=== PATIENT | female | born 1990 | race Hispanic/Latino ===

== ENCOUNTER 2019-03-23 15:43 | Emergency (ER) | payer OTHER, SELFPAY ==
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
[2019-03-23 18:49] VITALS: BP 118/78; TEMP 98; O2SAT 99
== END 2019-03-23 17:27 | disposition home or self-care (01) ==
LOC: ER 15:43
DX: S60.511A Abrasion of right hand, initial encounter (principal); R10.31 Right lower quadrant pain; V47.5XXA Car driver injured in collision with fixed or stationary object in traffic accident, initial encounter
CPT/HCPCS: 70450; 71250; 72125; 99284

== ENCOUNTER 2023-07-25 10:53 | Emergency (ER) | payer SELFPAY ==
[2023-07-25] MEDS ORDERED: SMZ./TMP. 800/160 MG TABLET ONE (12:15)
[2023-07-25] MEDS ORDERED: DOXYCYCLINE 100 MG CAP PO ONE (12:15)
[2023-07-25] MEDS ORDERED: LIDOCAINE 2% W/EPI 1:200,000 MPF 20 ML VIAL IM ONE (12:15)
[2023-07-25 13:20] LABS: Specific Gravity 1.013 (1.005-1.030)
[2023-07-25 13:43] LABS: Specific Gravity 1.013 (1.005-1.030); Urine Bacteria <20 /HPF (<20); Urine Bilirubin NEGATIVE (Negative); Urine Blood Negative (Negative); Urine Clarity Extremely Turbid (Clear); Urine Color Light-Yellow (Yellow); Urine Culture Reflex Order NOT NEEDED; Urine Glucose NEGATIVE (Negative); Urine Ketones NEGATIVE (Negative); Urine Microscopic Reflex YN ORDER UMIC; Urine Mucus Slight /HPF (None Seen); Urine Nitrite NEGATIVE (Negative); Urine Protein NEGATIVE (Negative); Urine RBC <5 /HPF (None Seen); Urine Urobilinogen Normal (Normal); Urine WBC <5 /HPF (<5)
--- NOTE | 2023-07-25 14:00 | ER ---
Nurse's Notes [facility] Name: Lisseth Cardenas Age: 33 yrs Sex: Female : 1990 Arrival Date: 07/25/2023 Time: 10:53 Bed 18 Private MD: Diagnosis: Sebaceous cyst-infected;Cutaneous abscess of trunk Presentation: 07/24 11:08 Chief complaint: Patient states: "I've had this abscess under my right breast for the mb9 past week. I danny to urgent care on Saturday and got put on Bactrim but it's not helping. ". Coronavirus screen: At this time, the client does not indicate any symptoms associated with coronavirus-19. Ebola Screen: No symptoms or risks identified at this time. Initial Sepsis Screen: Does the patient meet any 2 criteria? No. Patient's initial sepsis screen is negative. Does the patient have a suspected source of infection? No. Patient's initial sepsis screen is negative. Risk Assessment: Do you want to hurt yourself or someone else? Patient reports no desire to harm self or others. Onset of symptoms was July 25, 2023. 11:08 Acuity: RADHA 3 mb9 11:08 Method Of Arrival: Ambulatory mb9 Triage Assessment: 11:10 General: Appears in no apparent distress. uncomfortable, obese, Behavior is calm, bp cooperative, appropriate for age. Pain: Complains of pain in abdomen. Derm: Abscess located on abdomen is golf ball sized. Historical: - Allergies: 11:07 No Known Allergies; mb9 - Home Meds: 11:07 Bactrim [Active]; mb9 - PMHx: 11:07 None; mb9 - PSHx: 11:07 None; mb9 - Immunization history:: Adult Immunizations up to date. - Infectious Disease History:: Denies. - Social history:: Smoking status: Patient denies any tobacco usage or history of. - Family history:: not pertinent. Screenin:15 [facility] ED Fall Risk Assessment (Adult) History of falling in the last 3 months, bp including since admission No falls in past 3 months (0 pts). Abuse screen: Denies threats or abuse. Denies injuries from another. Nutritional screening: No deficits noted. Tuberculosis screening: No symptoms or risk factors identified. Assessment: 11:10 General: SEE TRIAGE NOTE. bp 13:01 Reassessment: AT B/S FOR I\\T\\D. bp Vital Signs: 11:08 BP 130 / 68; Pulse 75; Resp 18; Temp 97.9; Pulse Ox 100% ; Weight 90.72 kg; Height 5 mb9 ft. 2 in. ; Pain 7/10; 13:00 BP 127 / 99; Pulse 82; Resp 16; Pulse Ox 100% ; bp 14:29 BP 121 / 81; Pulse 67; Resp 16; Pulse Ox 100% ; bp 11:08 Body Mass Index 36.58 (90.72 kg, 157.48 cm) mb9 11:08 Pain Scale: Adult mb9 ED Course: 10:58 Patient arrived in ED. ra3 11:02 Efra Costa MD is Attending Physician. marina 11:07 Arm band placed on. mb9 11:09 Triage completed. mb9 11:15 Patient has correct armband on for positive identification. bp 12:17 Cipriano Acosta, RN is Primary Nurse. bp 13:01 Assist provider with I \\T\\ D: of an abscess on ABDOMEN Set up I\\T\\D tray. Performed by bp Efra Costa MD Culture sent to lab. 13:59 Yaya Alamo MD is Referral Physician. marina 14:30 Patient did not have IV access during this emergency room visit. bp 14:31 Provided Education on: n/a. bp Administered Medications: 12:22 Drug: Doxycycline PO 200 mg PO once Route: PO; bp 13:59 Follow up: Response: No adverse reaction bp 12:22 Drug: Trimethoprim-Sulfamethoxazole PO (160 mg-800 mg (DS) 1 tablet PO once Route: PO; bp 13:59 Follow up: Response: No adverse reaction bp 13:59 Drug: Mupirocin Topical Ointment 2 % 1 application Topical once Route: Topical; Site: bp affected area; Outcome: 14:00 Discharge ordered by . marina 14:30 Discharged to home ambulatory, bp 14:30 Condition: stable 14:30 Discharge instructions given to patient, Instructed on discharge instructions, follow up and referral plans. medication usage, Demonstrated understanding of instructions, follow-up care, medications, wound care, Prescriptions given X 4, 14:31 Patient left the ED. bp Signatures: Efra Costa MD MD cha Peltier, Brian, RN RN Cynthia Sanfordh, RN RN mb9 Pao, Leidy ra3
--- NOTE | 2023-07-25 14:00 | EDPHYS ---
Physician Documentation [facility] Name: Lisseth Cardenas Age: 33 yrs Sex: Female : 1990 Arrival Date: 07/25/2023 Time: 10:53 Bed 18 Private MD: Efra King HPI: 07/24 13:52 This 33 yrs old Female presents to ER via Ambulatory with complaints of marina Abscess - under breast. 13:52 The patient presents with an abscess of the chest, The patient presents with cellulitis marina of the diaphragm. Description: The affected area is small, moderate sized, localized, erythematous, fluctuant. Onset: The symptoms/episode began/occurred 10 day(s) ago. Possible cause(s): unknown. Associated signs and symptoms: The patient has no apparent associated signs or symptoms. Modifying factors: the symptoms are alleviated by nothing, the symptoms are aggravated by movement, squeezing the lesion and expressing the contents, touching. Severity of symptoms: At their worst the symptoms were moderate, in the emergency department the symptoms are unchanged. The patient has experienced similar episodes in the past, a few times. Historical: - Allergies: 11:07 No Known Allergies; mb9 - Home Meds: 11:07 Bactrim [Active]; mb9 - PMHx: 11:07 None; mb9 - PSHx: 11:07 None; mb9 - Immunization history:: Adult Immunizations up to date. - Infectious Disease History:: Denies. - Social history:: Smoking status: Patient denies any tobacco usage or history of. - Family history:: not pertinent. ROS: 13:52 Constitutional: Negative for fever, chills, and weight loss, Eyes: Negative for injury, marina pain, redness, and discharge, ENT: Negative for injury, pain, and discharge, Neck: Negative for injury, pain, and swelling, Cardiovascular: Negative for chest pain, palpitations, and edema, Respiratory: Negative for shortness of breath, cough, wheezing, and pleuritic chest pain, Abdomen/GI: Negative for abdominal pain, nausea, vomiting, diarrhea, and constipation, Back: Negative for injury and pain, : Negative for injury, bleeding, discharge, and swelling, MS/Extremity: Negative for injury and deformity, Neuro: Negative for headache, weakness, numbness, tingling, and seizure, Psych: Negative for depression, anxiety, suicide ideation, homicidal ideation, and hallucinations, Allergy/Immunology: Negative for hives, rash, and allergies, Endocrine: Negative for neck swelling, polydipsia, polyuria, polyphagia, and marked weight changes, Hematologic/Lymphatic: Negative for swollen nodes, abnormal bleeding, and unusual bruising, 13:52 Skin: Positive for abscess, cellulitis, swelling, of the abdomen, Exam: 13:52 Constitutional: This is a well developed, well nourished patient who is awake, alert, marina and in no acute distress. Head/Face: Normocephalic, atraumatic. Eyes: Pupils equal round and reactive to light, extra-ocular motions intact. Lids and lashes normal. Conjunctiva and sclera are non-icteric and not injected. Cornea within normal limits. Periorbital areas with no swelling, redness, or edema. ENT: Nares patent. No nasal discharge, no septal abnormalities noted. Tympanic membranes are normal and external auditory canals are clear. Oropharynx with no redness, swelling, or masses, exudates, or evidence of obstruction, uvula midline. Mucous membranes moist. Neck: Trachea midline, no thyromegaly or masses palpated, and no cervical lymphadenopathy. Supple, full range of motion without nuchal rigidity, or vertebral point tenderness. No Meningismus. Chest/axilla: Normal chest wall appearance and motion. Nontender with no deformity. No lesions are appreciated. Cardiovascular: Regular rate and rhythm with a normal S1 and S2. No gallops, murmurs, or rubs. Normal PMI, no JVD. No pulse deficits. Respiratory: Lungs have equal breath sounds bilaterally, clear to auscultation and percussion. No rales, rhonchi or wheezes noted. No increased work of breathing, no retractions or nasal flaring. Abdomen/GI: Soft, non-tender, with normal bowel sounds. No distension or tympany. No guarding or rebound. No evidence of tenderness throughout. Back: No spinal tenderness. No costovertebral tenderness. Full range of motion. Neuro: Awake and alert, GCS 15, oriented to person, place, time, and situation. Cranial nerves II-XII grossly intact. Motor strength 5/5 in all extremities. Sensory grossly intact. Cerebellar exam normal. Normal gait. Psych: Awake, alert, with orientation to person, place and time. Behavior, mood, and affect are within normal limits. 13:52 Musculoskeletal/extremity: ROM: no acute changes, Circulation is intact in all extremities. 13:52 Skin: abscess, that is moderate sized, of the abdomen, cellulitis, that is mild, that is moderate, induration, that is moderate is noted, injury, is not appreciated, no rash present. Vital Signs: 11:08 BP 130 / 68; Pulse 75; Resp 18; Temp 97.9; Pulse Ox 100% ; Weight 90.72 kg; Height 5 mb9 ft. 2 in. ; Pain 7/10; 13:00 BP 127 / 99; Pulse 82; Resp 16; Pulse Ox 100% ; bp 14:29 BP 121 / 81; Pulse 67; Resp 16; Pulse Ox 100% ; bp 11:08 Body Mass Index 36.58 (90.72 kg, 157.48 cm) mb9 11:08 Pain Scale: Adult mb9 Procedures: 13:59 I \T\ D: Incision and drainage was performed for an abscess of the right Prepped with [facility] Betadine, Anesthetized with 10 ml's 1% Lidocaine w/ Epi. Incised with #11 blade. Drained moderate amount purulent fluid. Packed with iodoform gauze, Dressing: non-Adherent dressing, the patient tolerated the procedure well. MDM: 11:02 Patient medically screened. [facility] 13:55 Differential diagnosis: abscess, cellulitis. Data reviewed: vital signs, nurses notes, [facility] lab test result(s). Consideration of Admission/Observation Escalation of care including admission/observation considered. I considered the following discharge prescriptions or medication management in the emergency department Medications were administered in the Emergency Department. See MAR. Test considered but Not performed: Labs: no cbc, no comp met. Historians other than the Patient: patient well informed. Care significantly affected by the following chronic conditions: none. 07/24 12:09 Order name: Urinalysis w/ reflexes; Complete Time: 13:51 [facility] 07/24 12:09 Order name: PREGU; Complete Time: 13:51 [facility] 07/24 12:09 Order name: Wound Culture [facility] 07/24 12:09 Order name: Suture Tray at Bedside; Complete Time: 12:12 [facility] 07/24 13:52 Order name: Wound dressing; Complete Time: 13:59 marina Administered Medications: 12:22 Drug: Doxycycline PO 200 mg PO once Route: PO; bp 13:59 Follow up: Response: No adverse reaction bp 12:22 Drug: Trimethoprim-Sulfamethoxazole PO (160 mg-800 mg (DS) 1 tablet PO once Route: PO; bp 13:59 Follow up: Response: No adverse reaction bp 13:59 Drug: Mupirocin Topical Ointment 2 % 1 application Topical once Route: Topical; Site: bp affected area; Disposition Summary: 07/25/23 14:00 Discharge Ordered Notes: Location: Home [facility] Problem: new marina Symptoms: have improved marina Condition: Stable marina Diagnosis - Sebaceous cyst - infected marina - Cutaneous abscess of trunk marina Followup: marina - With: Private Physician - When: 2 - 3 days - Reason: Recheck today's complaints, Re-evaluation by your physician Followup: marina - With: Yaya Alamo MD - When: 2 - 3 days - Reason: Recheck today's complaints, Re-evaluation by your physician Discharge Instructions: - Discharge Summary Sheet marina - Skin Abscess marina - Epidermoid Cyst Removal marina - Epidermoid Cyst, [id number] marina - Epidermoid Cyst marina - Skin Abscess, [id number] marina - Epidermoid Cyst Drainage [facility] Forms: - Medication Reconciliation Form [facility] - Thank You Letter [facility] - Antibiotic Education [facility] - Prescription Opioid Use marina - Patient Portal Instructions [facility] - Leadership Thank You Letter [facility] Prescriptions: - Centany 2 % Topical ointment - apply 1 application TOPICAL route 3 times per day; 30 gram; Refills: 0, Product [facility] Selection Permitted - Ibuprofen 600 mg Oral Tablet - take 1 tablet ORAL route every 6 hours As needed take with food; 30 tablet; [facility] Refills: 0, Product Selection Permitted - Doxycycline Hyclate 100 mg Oral Tablet - take 1 tablet ORAL route every 12 hours; 20 tablet; Refills: 0, Product [facility] Selection Permitted - Bactrim DS 800-160 mg Oral Tablet - take 1 tablet ORAL route every 12 hours for 10 days; 20 tablet; Refills: 0, [facility] Product Selection Permitted Signatures: Dispatcher [employer] Efra Meza MD MD cha Peltier, Brian, RN RN Cynthia Sanford RN RN mb9
[2023-07-25 20:16] VITALS: BP 121/81; TEMP 97.9; O2SAT 100
== END 2023-07-25 14:31 | disposition home or self-care (01) ==
LOC: ER 10:53
PROC: 0H97XZZ Drainage of Abdomen Skin, External Approach (ICD-10-PCS; principal; 2023-07-25)
DX: L72.3 Sebaceous cyst (principal); L03.311 Cellulitis of abdominal wall
CPT/HCPCS: 81001; 81025; 87070; 87205; 99284